=== PATIENT | female | born 1985 | race African-American/Black ===

== ENCOUNTER 2017-11-11 13:26 | Emergency (ER) | payer SELFPAY ==
[2017-11-11] MEDS ORDERED: Lidocaine 2% Viscous Solution 100 ML Bottle PO ONE (13:27)
--- NOTE | 2017-11-11 13:28 | EDM.PDOC ---
ED HPI GENERAL MEDICAL PROBLEM - General Stated Complaint: TOOTHACHE Time Seen by Provider: 11/11/17 13:27 Source of Information: Reports: Patient History Limitations: Reports: No Limitations - History of Present Illness INITIAL COMMENTS - FREE TEXT/NARRATIVE: HISTORY AND PHYSICAL: History of present illness: Patient is a 32-year-old female who presents to the emergency room today with complaints of right upper and lower dental pain. She states she has multiple teeth that do need to get pulled but has been putting it off as it has not been bothering her. Yesterday she started having some pain to the right upper and lower side. She did go to the dentist office this morning but stated that they were not taking any new clients at this time. She denies any fever, chills, chest pain, shortness of breath or cough. Denies any nausea, vomiting, diarrhea or constipation. She denies any headache, change in vision, syncope or near syncope. Review of systems: As per history of present illness and below otherwise all systems reviewed and negative. Past medical history: As per history of present illness and as reviewed below otherwise noncontributory. Surgical history: As per history of present illness and as reviewed below otherwise noncontributory. Social history: No reported history of drug or alcohol abuse. Family history: As per history of present illness and as reviewed below otherwise noncontributory. Physical exam: General: A nourished 32-year-old female. Alert and oriented. Nontoxic appearing and in no acute distress. HEENT: Atraumatic, normocephalic, pupils equal and reactive bilaterally, negative for conjunctival pallor or scleral icterus, mucous membranes moist, tooth # 3, #30, 31 have poor dentition and appear to be severely decayed. Errethyma noted to gumline along #3. Her throat clear, neck supple, nontender, trachea midline. No drooling or trismus noted. No meningeal signs Lungs: Clear to auscultation, breath sounds equal bilaterally, chest nontender. Heart: S1S2, regular rate and rhythm without overt murmur Abdomen: Soft, nondistended, nontender. Negative for masses or hepatosplenomegaly. Negative for costovertebral tenderness. Pelvis: Stable nontender. Genitourinary: Deferred. Rectal: Deferred. Skin: Intact, warm, dry. No lesions or rashes noted. Extremities: Atraumatic, negative for cords or calf pain. Neurovascular unremarkable. Neuro: Awake, alert, oriented. Cranial nerves II through XII unremarkable. Cerebellum unremarkable. Motor and sensory unremarkable throughout. Exam nonfocal. Notes: We discussed following up with the dentist for definitive care. She voices understanding and is agreeable to care plan. Denies any further questions or concerns at this time. Diagnostics: None Therapeutics: Viscous Lidocaine/Hurricane Sarles (Tooth Balls) Prescription: Clindamycin Tramadol Impression: Dental Abscess Dental Decay Plan: 1. Please take the antibiotic as prescribed. 2. Tylenol and/or ibuprofen as needed for pain management. "Tooth Balls" have been given to you; apply along the gumline every 2-3 hours as needed. Do not swallow these; external use only. 3. Follow-up with a dentist for definitive care. Return to the ED as needed and as discussed. Definitive disposition and diagnosis as appropriate pending reevaluation and review of above. - Related Data Allergies Allergy/AdvReac Type Severity Reaction Status Date / Time Penicillins Allergy Hives Verified 11/11/17 13:41 Home Meds: Home Meds Clindamycin HCl 300 mg PO TID 10 Days #30 capsule 11/11/17 [Rx] Diclofenac Sodium [Voltaren] 75 mg PO BIDMEALS PRN #20 tab.cr 11/11/17 [Rx] traMADol [Ultram] 50 mg PO Q4H PRN #20 tab 11/11/17 [Rx] ED ROS ENT - Review of Systems Review Of Systems: ROS reveals no pertinent complaints other than HPI. ED EXAM, ENT - Physical Exam Exam: See Below (See dictation) Course - Vital Signs Last Recorded V/S: Last Vital Signs Temp 98.6 F 11/11/17 14:22 Pulse 77 11/11/17 14:22 Resp 16 11/11/17 13:28 BP 139/74 11/11/17 14:22 Pulse Ox 99 11/11/17 14:22 - Orders/Labs/Meds Meds: Medications Discontinued Medications Generic Name Dose Route Start Last Admin Trade Name Freq PRN Reason Stop Dose Admin Benzocaine 2 each 11/11/17 13:27 11/11/17 14:01 Hurricaine One 20% MUCMEM 11/11/17 13:28 1 each ONETIME ONE Administration Lidocaine HCl 20 ml 11/11/17 13:27 11/11/17 14:04 Xylocaine 2% Viscous PO 11/11/17 13:28 20 ml ONETIME ONE Administration Lidocaine HCl 15 ml 11/11/17 13:32 11/11/17 14:00 Xylocaine 2% Viscous PO 11/11/17 13:33 15 ml ONETIME ONE Administration Departure - Departure Time of Disposition: 13:46 Disposition: Home, Self-Care 01 Clinical Impression: Dental abscess, Dental decay - Discharge Information Prescriptions: Clindamycin HCl 300 mg PO TID 10 Days #30 capsule Diclofenac Sodium [Voltaren] 75 mg PO BIDMEALS PRN #20 tab.cr PRN Reason: Pain traMADol [Ultram] 50 mg PO Q4H PRN #20 tab PRN Reason: Pain Instructions: Dental Abscess, [id number] Referrals: PCP,None [Primary Care Provider] - Forms: ED Department Discharge Additional Instructions: The following information is given to patients seen in the emergency department who are being discharged to home. This information is to outline your options for follow-up care. We provide all patients seen in our emergency department with a follow-up referral. The need for follow-up, as well as the timing and circumstances, are variable depending upon the specifics of your emergency department visit. If you don't have a primary care physician on staff, we will provide you with a referral. We always advise you to contact your personal physician following an emergency department visit to inform them of the circumstance of the visit and for follow-up with them and/or the need for any referrals to a consulting specialist. The emergency department will also refer you to a specialist when appropriate. This referral assures that you have the opportunity for follow-up care with a specialist. All of these measure are taken in an effort to provide you with optimal care, which includes your follow-up. Under all circumstances we always encourage you to contact your private physician who remains a resource for coordinating your care. When calling for follow-up care, please make the office aware that this follow-up is from your recent emergency room visit. If for any reason you are refused follow-up, please contact the [facility] Emergency Department at and asked to speak to the emergency department charge nurse. [facility] [address] [place] [id number] 1. Please take the antibiotic as prescribed. 2. Tylenol and/or ibuprofen as needed for pain management. "Tooth Balls" have been given to you; apply along the gumline every 2-3 hours as needed. Do not swallow these; external use only. Tramadol as we discussed, can cause sedation. 3. Follow-up with a dentist for definitive care. Return to the ED as needed and as discussed.
[2017-11-11] MEDS ORDERED: Lidocaine 2% Viscous Solution 15 ML Cup PO ONE (13:32)
[2017-11-11] MEDS: Benzocaine 20% Topical Spray UD MUCMEM ONE ×2 (14:00→14:01)
== END 2017-11-11 14:05 | disposition home or self-care (01) ==
LOC: MW.ED 13:26
DX: K04.7 Periapical abscess without sinus (principal); K02.9 Dental caries, unspecified; Z88.0 Allergy status to penicillin
CPT/HCPCS: 99282; A9270

== ENCOUNTER 2018-05-04 19:42 | Emergency (ER) | payer BC ==
[2018-05-04] MEDS ORDERED: Sodium Chloride 0.9% 2.5 ML Syringe FLUSH PRN (19:48)
[2018-05-04] MEDS ORDERED: Aspirin 81 MG Tab.Chew PO ONE (19:48)
[2018-05-04] MEDS ORDERED: Sodium Chloride 0.9% 10 ML Syringe FLUSH PRN (19:48)
[2018-05-04] MEDS ORDERED: Sodium Chloride 0.9% 1,000 ML IV ONE (19:48)
--- NOTE | 2018-05-04 19:58 | EDM.PDOC ---
ED HPI GENERAL MEDICAL PROBLEM - General Chief Complaint: Chest Pain Stated Complaint: heart palpitations Time Seen by Provider: 05/04/18 19:47 - History of Present Illness INITIAL COMMENTS - FREE TEXT/NARRATIVE: HISTORY AND PHYSICAL: History of present illness: The patient is a healthy 33-year-old female with no significant cardiac or pulmonary history who presents with palpitations and feeling like her heart is skipping beats, left chest pain underneath her breast and shortness of breath that has been episodic over the last one year. Today the discomfort and symptoms started approximately 7 hours ago and has been pretty constant. She says in the past that will happen in clusters where she will have it several days in a row and then it will stop or week or so. She has never seen a provider for these symptoms. She has no history of thyroid problems and denies and has had a bilateral tubal ligation. The patient says that with these episodes she gets short of breath but she doesn't get sweaty or nauseated. Today similar episode happened and it lasted a long time so she became concerned. Currently in the ED she says she feels like her heart is going fast although on the monitor her heart rate is 80s. She says she also feels short of breath and she rates her pain as a 4/10 and is located underneath her left breast and does not radiate. She says the pain feels like a pressure and an achy pain. These episodes are not triggered by anything in particular and she doesn't drink caffeine and has no significant social history. She has never had her cholesterol lipid panel performed and her family history is significant for a father with heart disease and heart attack in his 40s and her mom with several strokes. She has no leg pain or swelling in his been eating and drinking normally. She said that today's event was not triggered by anything in particular and when I specifically asked her why she came in today versus prior episodes she said she was driving her car when this happened and usually it happens when she's at home and that scared her. She also does now tell nursing and me that occasionally these episodes will trigger a migraine headache and she was concerned when she was driving but that was starting to occur because she was having some blurred vision in her eyes and the start of a headache. Currently she denies that symptom Review of systems: As per history of present illness and below otherwise all systems reviewed and negative. Past medical history: As per history of present illness and as reviewed below otherwise noncontributory. Surgical history: As per history of present illness and as reviewed below otherwise noncontributory. Social history: No reported history of drug or alcohol abuse. Family history: As per history of present illness and as reviewed below otherwise noncontributory. Physical exam: General: Well-developed well-nourished overweight female who is nontoxic and very soft-spoken. She is cooperative and vital signs were noted by me HEENT: Atraumatic, normocephalic, pupils reactive, negative for conjunctival pallor or scleral icterus, mucous membranes moist, throat clear, neck supple, nontender, trachea midline. There is no thyromegaly or cervical adenopathy Lungs: Clear to auscultation, breath sounds equal bilaterally, chest nontender. There are no defects or deformities at the left chest area underneath the breast and I cannot elicit the pain on palpation. Heart: S1S2, regular rate and rhythm no overt murmurs Abdomen: Soft, nondistended, nontender. Negative for masses or hepatosplenomegaly. NABS Pelvis: Stable nontender. Genitourinary: Deferred. Rectal: Deferred. Extremities: Atraumatic, negative for cords or calf pain. Neurovascular unremarkable. No pedal edema or leg asymmetry Neuro: Awake, alert, oriented. Cranial nerves II through XII unremarkable. Cerebellum unremarkable. Motor and sensory unremarkable throughout. Exam nonfocal. Skin: No diaphoresis normal turgor no overt rashes or lesions Diagnostics: EKG CBC CMP PT INR troponin TSH UA with reflex culture chest x-ray H pylori UDS Therapeutics: IV O2 monitor IV fluids aspirin nitroglycerin sublingual Toradol--please see below notes The patient rated her pain on my evaluation as a 4/10 and for nursing when they went to give her the first nitroglycerin she rated as a 3/10. After the nitroglycerin the patient says that the pain has increased to an 8/10 and she says she is feeling more palpitations even though on the monitor there is no ectopy or irregular rhythm. She was refusing anymore nitroglycerin. I will do a repeat EKG and offer her some Toradol Patient is now refusing the Toradol. I will continue to monitor her testing healing these palpitations and is not sure why not seeing anything on the monitor. 2124: All testing results were discussed with the patient and she currently has no symptoms. Her blood pressure has also normalized to 120s/80s. I discussed with her possible causes of her symptoms and have offered her observation admission due to her presentation and her family history and she has declining. She would like follow-up in the clinic and I will give her those resources. Impression: Episodic chest pain acute on chronic declining admission stable Definitive disposition and diagnosis as appropriate pending reevaluation and review of above. Left Chest Pain Score (Numeric/FACES): 4 - Related Data Allergies Allergy/AdvReac Type Severity Reaction Status Date / Time Penicillins Allergy Hives Verified 05/04/18 19:51 Home Meds: Home Meds . [No Known Home Meds] 05/04/18 [History] Past Medical History - Past Health History Medical/Surgical History: Denies Medical/Surgical History Social & Family History - Family History Family Medical History: Noncontributory - Caffeine Use Caffeine Use: Reports: Coffee ED ROS GENERAL - Review of Systems Review Of Systems: ROS reveals no pertinent complaints other than HPI. ED EXAM, GENERAL - Physical Exam Exam: See Below (See dictation) Course - Vital Signs Last Recorded V/S: Last Vital Signs Temp 36.6 C 05/04/18 19:48 Pulse 88 05/04/18 20:14 Resp 18 05/04/18 20:14 BP 119/79 05/04/18 20:14 Pulse Ox 98 05/04/18 20:14 - Orders/Labs/Meds Orders: Active Orders 24 hr Category Date Time Status Cardiac Monitoring [RC] . DIRECTED Care 05/04/18 19:47 Active EKG Documentation Completion [RC] STAT Care 05/04/18 19:47 Active EKG Documentation Completion [RC] STAT Care 05/04/18 20:16 Active Oxygen Therapy, ED [RC] ASDIRECTED Care 05/04/18 19:47 Active Pulse Oximetry [RC] ASDIRECTED Care 05/04/18 19:47 Active Nitroglycerin [Nitrostat] Med 05/04/18 19:54 Active 0.4 mg SL Q5M PRN Sodium Chloride 0.9% [Saline Flush] Med 05/04/18 19:48 Active 10 ml FLUSH ASDIRECTED PRN Sodium Chloride 0.9% [Saline Flush] Med 05/04/18 19:48 Active 2.5 ml FLUSH ASDIRECTED PRN Saline Lock Insert [OM.PC] Stat Oth 05/04/18 19:47 Ordered Medication Orders Nitroglycerin (Nitrostat) 0.4 mg SL Q5M PRN PRN Reason: Chest Pain Last Admin: 05/04/18 20:07 Dose: 0.4 mg Admin: 05/04/18 20:02 Dose: 0.4 mg Sodium Chloride (Saline Flush) 10 ml FLUSH ASDIRECTED PRN PRN Reason: Keep Vein Open Sodium Chloride (Saline Flush) 2.5 ml FLUSH ASDIRECTED PRN PRN Reason: Keep Vein Open Labs: Laboratory Tests 05/04/18 05/04/18 05/04/18 Range/Units 20:00 20:00 20:00 WBC 6.49 (4.0-11.0) K/uL RBC 4.57 (4.30-5.90) M/uL Hgb 13.0 (12.0-16.0) g/dL Hct 39.6 (36.0-46.0) % MCV 86.7 (80.0-98.0) fL MCH 28.4 (27.0-32.0) pg MCHC 32.8 (31.0-37.0) g/dL RDW Std Deviation 44.0 (28.0-62.0) fl RDW Coeff of Rosas 14 (11.0-15.0) % Plt Count 284 (150-400) K/uL MPV 10.30 (7.40-12.00) fL Neut % (Auto) 56.1 (48.0-80.0) % Lymph % (Auto) 36.1 (16.0-40.0) % Cavalier % (Auto) 5.7 (0.0-15.0) % Eos % (Auto) 1.8 (0.0-7.0) % Baso % (Auto) 0.3 (0.0-1.5) % Neut # (Auto) 3.6 (1.4-5.7) K/uL Lymph # (Auto) 2.3 (0.6-2.4) K/uL Cavalier # (Auto) 0.4 (0.0-0.8) K/uL Eos # (Auto) 0.1 (0.0-0.7) K/uL Baso # (Auto) 0.0 (0.0-0.1) K/uL Nucleated RBC % 0.0 /100WBC Nucleated RBCs # 0 K/uL INR 0.93 Sodium 141 (136-145) mmol/L Potassium 3.3 L (3.5-5.1) mmol/L Chloride 105 (98-107) mmol/L Carbon Dioxide 26.2 (21.0-32.0) mmol/L BUN 8 (7.0-18.0) mg/dL Creatinine 1.0 (0.6-1.0) mg/dL Est Cr Clr Drug Dosing 75.61 mL/min Estimated GFR (MDRD) > 60.0 ml/min Glucose 118 H (74-106) mg/dL Calcium 8.9 (8.5-10.1) mg/dL Total Bilirubin 0.2 (0.2-1.0) mg/dL AST 13 L (15-37) IU/L ALT 29 (14-63) IU/L Alkaline Phosphatase 57 (46-116) U/L Troponin I < 0.050 (0.000-0.056) ng/mL Total Protein 7.6 (6.4-8.2) g/dL Albumin 4.0 (3.4-5.0) g/dL Globulin 3.6 (2.6-4.0) g/dL Albumin/Globulin Ratio 1.1 (0.9-1.6) TSH 3rd Generation 0.79 (0.36-3.74) uIU/mL Urine Color Urine Appearance Urine pH (5.0-8.0) Ur Specific Ovid (1.001-1.035) Urine Protein (NEGATIVE) mg/dL Urine Glucose (UA) (NEGATIVE) mg/dL Urine Ketones (NEGATIVE) mg/dL Urine Occult Blood (NEGATIVE) Urine Nitrite (NEGATIVE) Urine Bilirubin (NEGATIVE) Urine Urobilinogen (<2.0) EU/dL Ur Leukocyte Esterase (NEGATIVE) Urine Opiates Screen (NEGATIVE) Ur Oxycodone Screen (NEGATIVE) Urine Methadone Screen (NEGATIVE) Ur Barbiturates Screen (NEGATIVE) Ur Phencyclidine Scrn (NEGATIVE) Ur Amphetamine Screen (NEGATIVE) U Methamphetamines Scrn (NEGATIVE) U Benzodiazepines Scrn (NEGATIVE) U Cocaine Metab Screen (NEGATIVE) U Marijuana (THC) Screen (NEGATIVE) H. pylori IgG Antibody (NEG) 05/04/18 05/04/18 05/04/18 Range/Units 20:00 20:30 20:30 WBC (4.0-11.0) K/uL RBC (4.30-5.90) M/uL Hgb (12.0-16.0) g/dL Hct (36.0-46.0) % MCV (80.0-98.0) fL MCH (27.0-32.0) pg MCHC (31.0-37.0) g/dL RDW Std Deviation (28.0-62.0) fl RDW Coeff of Rosas (11.0-15.0) % Plt Count (150-400) K/uL MPV (7.40-12.00) fL Neut % (Auto) (48.0-80.0) % Lymph % (Auto) (16.0-40.0) % Cavalier % (Auto) (0.0-15.0) % Eos % (Auto) (0.0-7.0) % Baso % (Auto) (0.0-1.5) % Neut # (Auto) (1.4-5.7) K/uL Lymph # (Auto) (0.6-2.4) K/uL Cavalier # (Auto) (0.0-0.8) K/uL Eos # (Auto) (0.0-0.7) K/uL Baso # (Auto) (0.0-0.1) K/uL Nucleated RBC % /100WBC Nucleated RBCs # K/uL INR Sodium (136-145) mmol/L Potassium (3.5-5.1) mmol/L Chloride (98-107) mmol/L Carbon Dioxide (21.0-32.0) mmol/L BUN (7.0-18.0) mg/dL Creatinine (0.6-1.0) mg/dL Est Cr Clr Drug Dosing mL/min Estimated GFR (MDRD) ml/min Glucose (74-106) mg/dL Calcium (8.5-10.1) mg/dL Total Bilirubin (0.2-1.0) mg/dL AST (15-37) IU/L ALT (14-63) IU/L Alkaline Phosphatase (46-116) U/L Troponin I (0.000-0.056) ng/mL Total Protein (6.4-8.2) g/dL Albumin (3.4-5.0) g/dL Globulin (2.6-4.0) g/dL Albumin/Globulin Ratio (0.9-1.6) TSH 3rd Generation (0.36-3.74) uIU/mL Urine Color YELLOW Urine Appearance CLEAR Urine pH 6.0 (5.0-8.0) Ur Specific Ovid 1.020 (1.001-1.035) Urine Protein NEGATIVE (NEGATIVE) mg/dL Urine Glucose (UA) NEGATIVE (NEGATIVE) mg/dL Urine Ketones NEGATIVE (NEGATIVE) mg/dL Urine Occult Blood NEGATIVE (NEGATIVE) Urine Nitrite NEGATIVE (NEGATIVE) Urine Bilirubin NEGATIVE (NEGATIVE) Urine Urobilinogen 0.2 (<2.0) EU/dL Ur Leukocyte Esterase NEGATIVE (NEGATIVE) Urine Opiates Screen NEGATIVE (NEGATIVE) Ur Oxycodone Screen NEGATIVE (NEGATIVE) Urine Methadone Screen NEGATIVE (NEGATIVE) Ur Barbiturates Screen NEGATIVE (NEGATIVE) Ur Phencyclidine Scrn NEGATIVE (NEGATIVE) Ur Amphetamine Screen NEGATIVE (NEGATIVE) U Methamphetamines Scrn NEGATIVE (NEGATIVE) U Benzodiazepines Scrn NEGATIVE (NEGATIVE) U Cocaine Metab Screen NEGATIVE (NEGATIVE) U Marijuana (THC) Screen NEGATIVE (NEGATIVE) H. pylori IgG Antibody NEGATIVE (NEG) Meds: Medications Generic Name Dose Route Start Last Admin Trade Name Freq PRN Reason Stop Dose Admin Nitroglycerin 0.4 mg 05/04/18 19:54 05/04/18 20:07 Nitrostat SL 0.4 mg Q5M PRN Administration Chest Pain Sodium Chloride 10 ml 05/04/18 19:48 Saline Flush FLUSH ASDIRECTED PRN Keep Vein Open Sodium Chloride 2.5 ml 05/04/18 19:48 Saline Flush FLUSH ASDIRECTED PRN Keep Vein Open Discontinued Medications Generic Name Dose Route Start Last Admin Trade Name Freq PRN Reason Stop Dose Admin Aspirin 324 mg 05/04/18 19:48 05/04/18 20:00 Aspirin PO 05/04/18 19:49 324 mg ONETIME ONE Administration Sodium Chloride 1,000 mls @ 999 mls/hr 05/04/18 19:48 05/04/18 20:00 Normal Saline IV 05/04/18 20:48 999 mls/hr STAT ONE Administration Ketorolac Tromethamine 30 mg 05/04/18 20:14 05/04/18 20:22 Toradol IVPUSH 05/04/18 20:15 Not Given ONETIME ONE Departure - Departure Time of Disposition: 21:24 Disposition: Home, Self-Care 01 Condition: Good Clinical Impression: Chest pain Qualifiers: Chest pain type: unspecified Qualified Code(s): R07.9 - Chest pain, unspecified - Discharge Information Referrals: PCP,None [Primary Care Provider] - Forms: ED Department Discharge Additional Instructions: The following information is given to patients seen in the emergency department who are being discharged to home. This information is to outline your options for follow-up care. We provide all patients seen in our emergency department with a follow-up referral. The need for follow-up, as well as the timing and circumstances, are variable depending upon the specifics of your emergency department visit. If you don't have a primary care physician on staff, we will provide you with a referral. We always advise you to contact your personal physician following an emergency department visit to inform them of the circumstance of the visit and for follow-up with them and/or the need for any referrals to a consulting specialist. The emergency department will also refer you to a specialist when appropriate. This referral assures that you have the opportunity for followup care with a specialist. All of these measure are taken in an effort to provide you with optimal care, which includes your followup. Under all circumstances we always encourage you to contact your private physician who remains a resource for coordinating your care. When calling for followup care, please make the office aware that this follow-up is from your recent emergency room visit. If for any reason you are refused follow-up, please contact the [facility] emergency department at and ask to speak to the emergency department charge nurse. [facility]- Internal Medicine and Family [address] [address] Please call the clinic in the morning at 8 AM to schedule a follow-up appointment and let them know that you're in the ER this evening. Please watch your diet trying to avoid foods rich in sodium and avoid caffeinated products. Return to ER as needed and as discussed. - My Orders Last 24 Hours: My Active Orders 05/04/18 19:47 Cardiac Monitoring [RC] . DIRECTED EKG Documentation Completion [RC] STAT Oxygen Therapy, ED [RC] ASDIRECTED Pulse Oximetry [RC] ASDIRECTED Saline Lock Insert [OM.PC] Stat 05/04/18 19:48 Sodium Chloride 0.9% [Saline Flush] 10 ml FLUSH ASDIRECTED PRN Sodium Chloride 0.9% [Saline Flush] 2.5 ml FLUSH ASDIRECTED PRN 05/04/18 19:54 Nitroglycerin [Nitrostat] 0.4 mg SL Q5M PRN 05/04/18 20:16 EKG Documentation Completion [RC] STAT - Assessment/Plan Last 24 Hours: My Active Orders 05/04/18 19:47 Cardiac Monitoring [RC] . DIRECTED EKG Documentation Completion [RC] STAT Oxygen Therapy, ED [RC] ASDIRECTED Pulse Oximetry [RC] ASDIRECTED Saline Lock Insert [OM.PC] Stat 05/04/18 19:48 Sodium Chloride 0.9% [Saline Flush] 10 ml FLUSH ASDIRECTED PRN Sodium Chloride 0.9% [Saline Flush] 2.5 ml FLUSH ASDIRECTED PRN 05/04/18 19:54 Nitroglycerin [Nitrostat] 0.4 mg SL Q5M PRN 05/04/18 20:16 EKG Documentation Completion [RC] STAT
[2018-05-04] MEDS: Nitroglycerin 0.4 MG Tab.SL SL PRN ×2 (20:02→20:07)
[2018-05-04] MEDS ORDERED: Ketorolac 30 MG/ML SDV IVPUSH ONE (20:14)
[2018-05-04 20:37] LABS: CHLORIDE,CL 105 mmol/L (98-107); SODIUM,NA 141 mmol/L (136-145)
--- NOTE | 2018-05-04 20:59 | CR ---
Indication: Chest pain. SOB Technique: Chest 1 view Comparison: None Findings/Impression: Cardiovascular and mediastinum: Heart size and vasculature are normal in caliber and appearance. Mediastinum is within normal limits. Lungs and pleural space: A mild expiratory study. No consolidation or pleural effusions. No pneumothorax seen. Bones and soft tissues: No significant findings. Dictated by Power Andre MD @ 05/04/2018 8:56:18 PM Dictated by: Power Andre MD @ 05/04/2018 20:56:54 (Electronically Signed)
== END 2018-05-04 21:38 | disposition home or self-care (01) ==
LOC: MW.ED 19:42
DX: R07.89 Other chest pain (principal); Z88.0 Allergy status to penicillin
CPT/HCPCS: 71045; 80053; 80305; 81003; 84443; 84484; 85025; 85610; 86677; 96360; 96361; 99285; A9270; J7040; 93005; 99284